=== PATIENT | female | born 1970 ===

== ENCOUNTER → 2019-05-27 | Outpatient (CLI) | payer OTHER ==
[~2019-05-27] MED LIST: GADOTERATE 7.5 MMOL/15ML VIAL. IVP ONE
--- NOTE | 2019-05-27 14:23 | RAD ---
BRAIN WO/W CONTRAST History: Pituitary microadenoma Technique: Multiplanar, multi sequential pre and postcontrast MR imaging was performed of the brain. Comparison: None Findings: No acute infarct. No intracranial hemorrhage. No mass effect. No hydrocephalus. Noted tiny pineal cyst. Slight asymmetric enlargement of the right aspect of the pituitary gland. No definite lesion. No evidence of cavernous sinus invasion. No extension into the suprasellar cistern. Normal appearance of the optic chiasm. Pituitary infundibulum is midline. Normal posterior pituitary bright spot. Imaged orbits are unremarkable. Imaged paranasal sinuses and mastoid air cells are clear. Impression: 1. Slightly asymmetric enlargement of the right pituitary gland. Recommend comparison with prior imaging studies if available and correlation with pituitary hormone values. Electronically signed by: Poncho Chester DO (05/27/2019 2:20 PM) [id number]
== END | disposition home or self-care (01) ==
LOC: MRI 12:22
PROVIDERS: ATTEND Family Medicine
DX: D35.2 Benign neoplasm of pituitary gland (principal); E23.6 Other disorders of pituitary gland
CPT/HCPCS: 70553; A9575